=== PATIENT | female | born 1970 | race African-American/Black ===

== ENCOUNTER 2018-04-08 06:26 | Day surgery (SDC) | payer OTHER ==
--- NOTE | 2018-04-06 14:40 | RAD REPORT ---
EXAM DESCRIPTION: Sudheer Padilla (2 Views)04/06/2018 2:34 pm CLINICAL HISTORY: Preop for coronary catheterization. History of a myocardial infarction COMPARISON: None FINDINGS: The lungs appear clear of acute infiltrate. The heart is normal size IMPRESSION: No acute abnormalities displayed
[2018-04-06 15:06] LABS: Absolute Lymphocytes (CBC) 2.7 K/uL (0.7-4.9); Absolute Monocytes 0.6 K/uL (0.1-1.3); Absolute Neutrophil 3.6 K/uL (1.8-8.0); Basophils % 1.2 % (0-1.3); Eosinophils % 1.7 % (0-4.4); Hematocrit 40.5 % (36.0-45.0); Lymphocytes % 38.1 % (15.3-44.8); MCH 33.5 pg (27.0-35.0); MCV 94.1 fL (80-100); MPV 7.7 fL (7.6-11.3); Monocytes % 8.3 % (3.3-12.3); RBC Red Blood Cell Count 4.31 M/uL (3.86-4.86)
[2018-04-06 15:35] LABS: Protime INR 1.13
[2018-04-06 16:13] LABS: BUN Blood Urea Nitrogen 16 mg/dL (7-18); Bicarbonate 24 mmol/L (21-32); Glucose Level 96 mg/dL (74-106); Potassium 3.8 mmol/L (3.5-5.1); Sodium Level 136 mmol/L (136-145)
[2018-04-08] MEDS ORDERED: HEPA 1000U/500MLS 1,000 UNIT/500 ML BAG IV ONE (06:53)
[2018-04-08] MEDS ORDERED: LIDOCAINE 1% MPF 5 ML VIAL ONE (06:53)
[2018-04-08] MEDS ORDERED: NA CHLORIDE 0.9% 500 ML ONE (06:59)
[2018-04-08] MEDS ORDERED: MIDAZOLAM HCL 2 MG/2 ML INJ ONE (07:37)
[2018-04-08] MEDS ORDERED: FENTANYL CITR 100 MCG/2 ML ONE (07:37)
[2018-04-08] MEDS ORDERED: NA CHLORIDE 0.9% 0 ML ONE (07:37)
--- NOTE | 2018-04-08 18:58 | OP ---
Date of Procedure: 04/08/2018 Surgeon: Marcio Rain MD Pet Store Merchandiser: Zhen Conley. Admitted to my service as an outpatient to the parking lot laborer on 04/08/2018. Reason For Admission: Left heart catheterization, selective coronary arteriogram. Indication: Chest pain and positive Cardiolite. Description Of Procedure: The patient was brought to the parking lot laborer, prepped and draped in the routine sterile fashion, given 2 mg of Versed for IV sedation. A 6-Wolof sheath was introduced in the [facility] common femoral artery. Angiogram there was normal. Angio-Seal was used to close the case. Judkin s catheter was used to do the coronary arteriography of the left and right main respectively. She wa s definitely left dominant, but had normal coronaries in the RCA, circumflex and LAD. Blood vessels very tortuous, probably consistent with hypertension and LVH, but there were no significant atheroscl erosis. There were no complications. Blood Loss: 5 cc. Total Conscious Sedation: 30 minutes. Plan: Plan is for medical therapy. Radiation Protection Specialist: Joanne Jade Voice ID: [id number] Report ID: [id number]
== END 2018-04-08 10:10 | disposition home or self-care (01) ==
LOC: CCL 06:26
PROC: B201YZZ Plain Radiography of Multiple Coronary Arteries using Other Contrast (ICD-10-PCS; principal; 2018-04-08)
DX: R07.9 Chest pain, unspecified (principal); R06.09 Other forms of dyspnea; I10 Essential (primary) hypertension; E78.5 Hyperlipidemia, unspecified; E78.6 Lipoprotein deficiency; F32.9 Major depressive disorder, single episode, unspecified; Z88.6 Allergy status to analgesic agent; Z82.49 Family history of ischemic heart disease and other diseases of the circulatory system
CPT/HCPCS: 36415; 71046; 80048; 84702; 85025; 85610; 85730; 93454; C1760; C1893; J0583; J2250; J3010